=== PATIENT | female | born 1965 | race Caucasian/White ===

== ENCOUNTER 2017-11-17 13:07 | Emergency (ER) | payer MEDICAID ==
[2017-11-17 15:33] LABS: HCG,QUALITATIVE URINE NEGATIVE (NEGATIVE); SQUAMOUS EPITHIAL < 1 /hpf (0-5); URINE BACTERIA RARE (<OCC); URINE BILIRUBIN NEGATIVE (NEGATIVE); URINE BLOOD 3+ (NEGATIVE); URINE COLOR Yellow (YELLOW); URINE GLUCOSE (UA) NORMAL (Normal); URINE PROTEIN NEGATIVE (NEGATIVE); URINE UROBILINOGEN NORMAL mg/dL (0.2-1.0)
[2017-11-17 15:35] LABS: URINE CLARITY SLHAZY (Clear); URINE LEUKOCYTE ESTERASE 1+ Leu/uL (Negative)
--- NOTE | 2017-11-17 16:35 | C.PDOC ---
History Of Present Illness Pt c/o hematuria. Pt states she was sent here by Dr. Jason Salmeron. Time Seen by Provider: 11/17/17 14:48 Chief Complaint (Nursing): Female Genitourinary History Per: Patient Onset/Duration Of Symptoms: Days (about 3 months), Waxing/Waning Current Symptoms Are (Timing): Still Present Severity: Moderate Associated Symptoms: Urinary Symptoms Additional History Per: Prior Records Past Medical History Reviewed: Historical Data, Nursing Documentation, Vital Signs Vital Signs: Last Vital Signs Temp 97.4 F L 11/17/17 15:47 Pulse 60 11/17/17 15:47 Resp 16 11/17/17 15:47 BP 134/89 11/17/17 15:47 Pulse Ox 98 11/17/17 15:47 - Medical History PMH: Back Problems, Diverticulitis, HTN Other PMH: Solitary right kidney Surgical History: No Surg Hx Family History: States: Unknown Family Hx - Social History Hx Alcohol Use: Yes Hx Substance Use: Yes Review Of Systems Except As Marked, All Systems Reviewed And Found Negative. Constitutional: Negative for: Fever, Chills, Weakness Cardiovascular: Negative for: Chest Pain Respiratory: Negative for: Shortness of Breath Gastrointestinal: Negative for: Vomiting, Abdominal Pain, Diarrhea Genitourinary: Positive for: Hematuria. Negative for: Vaginal Bleeding Musculoskeletal: Negative for: Neck Pain Skin: Negative for: Rash Neurological: Negative for: Weakness, Numbness Physical Exam - Physical Exam Appears: Non-toxic, No Acute Distress Skin: Normal Color, Warm, Dry Head: Atraumatic, Normacephalic Eye(s): bilateral: PERRL, EOMI Neck: Normal ROM, Supple Cardiovascular: Rhythm Regular Respiratory: Normal Breath Sounds, No Accessory Muscle Use Gastrointestinal/Abdominal: Soft, No Tenderness Back: No CVA Tenderness Extremity: Normal ROM Neurological/Psych: Oriented x3, Normal Motor, Normal Sensation ED Course And Treatment - Laboratory Results Interpretation Of Abnormal: Probable UTI, urine C&S sent. Urine POC: Negative O2 Sat by Pulse Oximetry: 98 Pulse Ox Interpretation: Normal Progress Note: [place] [facility] [place] and had unremarkable labs as well as CT abd/pelv that showed not renal stones or hydronephrosis. Disposition Discussed With : Billy Salmeron Comment: He agreed with antibotic Rx and will f/up in his office. Doctor Will See Patient In The: Office Counseled Patient/Family Regarding: Studies Performed, Diagnosis, Need For Followup, Rx Given - Disposition Referrals: Billy Salmeron MD [Staff Provider] - Disposition: HOME/ ROUTINE Disposition Time: 16:35 Condition: STABLE Additional Instructions: Drink plenty of fluids. Follow up with the Urologist for further evaluation and treatment. Return to the ER if you develop fever, abdominal pain, worsening of symptoms or if you have any other concerns. Prescriptions: Nitrofurantoin Macrocrystals [Macrobid] 1 cap PO BID #14 cap Instructions: Urinary Tract Infection, Adult (DC) - Clinical Impression Clinical Impression: UTI (urinary tract infection)
[2017-11-17 16:53] VITALS: BP 137/81; PULSE 64; RESP 18; TEMP 98.4; O2SAT 97
== END 2017-11-17 16:55 | disposition home or self-care (01) ==
LOC: C.ER 13:07
DX: N39.0 Urinary tract infection, site not specified (principal)

== ENCOUNTER 2017-12-04 11:31 | Day surgery (SDC) | payer MEDICAID ==
[2017-12-04 12:12] LABS: BASO # 0.1 K/uL (0.0-0.2); EOS # 0.3 K/uL (0.0-0.7); EOS % 2.4 % (0.0-4.0); HEMOGLOBIN 18.1 g/dL (11.0-16.0); LYMPH # 2.9 K/uL (1.0-4.3); LYMPH % 25.9 % (20.0-40.0); MEAN CELL VOLUME 93.1 fL (81.0-99.0); MEAN CORPUSCULAR HEMOGLOBIN 31.9 pg (27.0-31.0); MEAN CORPUSCULAR HGB CONC 34.3 g/dL (33.0-37.0); MEAN PLATELET VOLUME 9.1 fL (7.2-11.7); MONO # 0.9 K/uL (0.0-0.8); MONO % 7.7 % (0.0-10.0); NEUT # 7.1 K/uL (1.8-7.0); NRBC % 0.1 % (0.0-2.0); RBC 5.66 Mil/uL (3.80-5.20); RED CELL DISTRIBUTION WIDTH 13.8 % (11.5-14.5); WHITE BLOOD COUNT 11.3 K/uL (4.8-10.8)
[2017-12-04 12:23] LABS: ALB/GLOB RATIO 1.2 (1.0-2.1); ALBUMIN 4.5 g/dL (3.5-5.0); ALT/SGPT 41 U/L (9-52); AST/SGOT 28 U/L (14-36); BLOOD UREA NITROGEN 16 mg/dL (7-17); CALCIUM 9.8 mg/dl (8.6-10.4); GFR NON-AFRICAN AMERICAN 52
[2017-12-04] MEDS ORDERED: Propofol 10 mg/ml Inj (20 ML) ONE (14:41)
[2017-12-04] MEDS ORDERED: Midazolam 2 MG/2 ML VIAL ONE (14:41)
[2017-12-04] MEDS ORDERED: cefTRIAXone 1 gm 1 GM/100 ML BAG IVPB ONE (14:42)
[2017-12-04] MEDS ORDERED: Iohexol 240 (50 ml) ONE (14:43)
[2017-12-04] MEDS ORDERED: Lactated Ringer's 1,000 ML IV ONE (15:23)
[2017-12-04] MEDS ORDERED: HYDROmorphone 0.5 mg/0.5 ml ISec ONE (15:29)
[2017-12-04] MEDS: HYDROmorphone 0.5 mg/0.5 ml ISec IVP PRN ×2 (15:41→16:07)
[2017-12-04] MEDS ORDERED: Oxycodone/Acetaminophen 5/325 mg Tab PO PRN (15:42)
--- NOTE | 2017-12-04 15:49 | RAD ---
PROCEDURE: HISTORY: As Above COMPARISON: None TECHNIQUE: Total fluoroscopic time utilized during the procedure: 4.8 seconds. Total dose 2.07 mGy cm squared FINDINGS: Submitted images from the current procedure: 2 Please refer to the physician's notes performing the procedure. IMPRESSION: Less than 1 hour fluoroscopic time utilized during performance of the procedure
--- NOTE | 2017-12-04 16:10 | RAD ---
Date of service: 12/04/2017 HISTORY: HEMATURIA COMPARISON: Two studies are presented 1 at 1452 hours another 1510 hours. The 1510 hour study has a hyperdensity projecting over the right kidney in also over the lowest right rib. This is not appreciated on the 14 52 are study. Clinical correlation is essential. Moderate stool retention. This limits optimal evaluation for any renal parenchymal calculi. Ir left hemipelvic phleboliths. The sacral junction osseous hypertrophic changes with transitional elements also suggested. Diffuse multi segmental lumbar spondylotic ridging also noted. FINDINGS: BOWEL: Normal. No obstruction. No free air. BONES: Normal. OTHER FINDINGS: None. IMPRESSION: Indeterminate findings regarding the right upper quadrant hyperdensity not a constant finding. Correlation with any outside the CT imaging is advised. Moderate stool retention.
[2017-12-04 17:24] VITALS: O2SAT 98
--- NOTE | 2017-12-04 17:35 | CT ---
Date of service: 12/04/2017 PROCEDURE: CT Abdomen and Pelvis with Oral contrast. HISTORY: Hematuria. COMPARISON: None. TECHNIQUE: Contiguous helical/transaxial sections of the abdomen pelvis performed without oral or intravenous contrast material. Additional 2D sagittal and coronal reformats generated. Radiation dose: Total exam DLP = mGy-cm. This CT exam was performed using one or more of the following dose reduction techniques: Automated exposure control, adjustment of the mA and/or kV according to patient size, and/or use of iterative reconstruction technique. Total exam DLP = 1031.41 mGy-cm. FINDINGS: LOWER THORAX: Lung bases are clear. No infiltrate effusion or basilar pneumothorax. Heart appears mildly enlarged. No significant pericardial effusion. Tiny hiatal hernia. LIVER: Liver exhibits normal size and attenuation pattern without mass collection or calcification. GALLBLADDER AND BILE DUCTS: Gallbladder physiologically distended. No evidence intraluminal gallbladder calculi. PANCREAS: Unremarkable. No mass. No ductal dilatation. SPLEEN: Unremarkable. No splenomegaly. ADRENALS: No adrenal lesions. KIDNEYS AND URETERS: Left kidney is not present and there are no metallic clips or opaque suture material seen in the expected left renal fossa. Findings could be due to congenital absence however clinic correlation recommended. The right kidney appears compensatory enlarged measuring approximately 13 cm. 2 tiny nonobstructing calculi seen upper pole right kidney. No evidence of hydronephrosis. BLADDER: In situ unclamped Contreras catheter ; urinary bladder is collapsed about the in situ unclamped Contreras catheter which presumably accounts for thick-walled appearance. Small amount of air is present within the bladder itself is well likely due to recent instrumentation. Clinical correlation recommended to exclude the possibility of infection with gas-forming organism. REPRODUCTIVE: Small approximately 14 mm left cyst or prominent follicle. APPENDIX: Normal-appearing appendix. BOWEL: Evaluation of the bowel is limited due to the lack of oral contrast material. Stomach is incompletely distended which in part accounts for thick-walled appearance Visualized loops of small bowel exhibit normal contour and caliber. No evidence of acute mechanical small bowel obstruction. Stool and air seen throughout the large bowel. No definitive evidence of abnormal mural wall thickening. PERITONEUM: Unremarkable. No fluid collection. No free air. Small fat containing umbilical hernia. LYMPH NODES: Unremarkable. No enlarged lymph nodes. VASCULATURE: Unremarkable. No aortic aneurysm. Minor partially calcified atherosclerotic plaque seen along the abdominal aorta and iliac arteries. BONES: Mild multilevel degenerative spondylosis of the lumbar and lower thoracic spine. No acute compression fractures no retropulsed fragments. Questionable mild side bending and/or spasm of the upper torso to the right versus is a mild levoscoliosis. OTHER FINDINGS: None. IMPRESSION: Absent left kidney. Right kidney appears contents stool early mildly enlarged. A 2 tiny and nonobstructing calculi upper pole right kidney. No evidence of right-sided hydronephrosis. In situ unclamped Contreras catheter with collapse of the urinary bladder about the Contreras catheter. Small amount of air is also present likely due to recent instrumentation. Correlation with urinalysis to exclude cystitis. Findings suggest prominent left adnexal follicle or small cyst pelvic ultrasound followup could be performed if indicated.
[2017-12-04 17:54] VITALS: BP 127/83; PULSE 67; RESP 18; TEMP 97.6
--- NOTE | 2017-12-05 06:31 | OP ---
Copied To: Irvin Salmeron MD Attending MD: Irvni Salmeron MD PROCEDURE DATE: 12/04/2017 PREOPERATIVE DIAGNOSES: Gross hematuria, voiding dysfunction, irritative and obstructive complaints. The patient also with a solitary kidney of the right side. POSTOPERATIVE DIAGNOSES: Gross hematuria, voiding dysfunction, irritative and obstructive complaints. The patient also with a solitary kidney of the right side. Bladder mass. I cannot identify the left ureteral orifice ( I do not know if she has one), but I cannot see. See the body of the report. The patient has a fairly significant bladder mass on the left side of her bladder neck right where the ureteral orifice would be. Multiple pictures were taken and saved and the biopsy was taken. PROCEDURE: Exam under anesthesia, cystoscopy, right retrograde pyelogram, bladder biopsy and fulguration, and attempted left retrograde, but we could not find the left ureteral orifice ( The patient has been found to have only 1 kidney). BLOOD LOSS: Less than 10 mL. DRAIN: Contreras catheter. SPECIMEN: Bladder biopsy. COMPLICATIONS: There were no complications. INDICATIONS: See history and physical. This is a very pleasant lady who presents with almost 10 years old with gross hematuria. She is here for the above-listed procedure. We discussed risks, benefits, and treatment alternatives with the patient. UROLOGY FINDINGS: 1. There is no fixed masses. The bladder is mobile and completely patent. 2. There is no rectal mass. 3. The right retrograde pyelogram was within normal limits. 4. The patient's left side of bladder near where the trigone and ureteral orifice should be, there is mass, somewhere about 3 to 5 cm in size. I took multiple pictures. It seems to be this was the bleeding. There is some warmth, redness and erythema that seems to be this was the bleeding. There are no other bladder lesions that we identified. We will subsequently take a biopsy and fulguration of that area. We also did a retrograde pyelogram. Further plans will follow. Determination to see whatever mass is there is still there. Concerns for an underlying malignancy. See the plans in the addendum, but I am planning to get a CT scan of the abdomen and pelvis, no contrast. SHE IS ALLERGIC. Just to see what the left side looks like and so we stop manipulating, but otherwise, we should be able to resect it with a TURBT. DESCRIPTION OF PROCEDURE: After obtaining informed consent, the patient was placed on the table in routine manner, routine time out was called. We confirmed the patient and positioning. We introduced the cystoscope via the urethra. Bladder was inspected carefully. The right ureteral orifice was identified, clear efflux on the right side and right retrograde pyelogram was performed, all within normal limits. In the left side, we noted the presence of the mass. We looked around and inspected. No other masses noted. It does not appear that the patient has hypertrophy of the kidney. I do not know the exact details for if she was born with one kidney, solitary kidney or whether it is removed later, but it does not overall appear to be overtly hypertrophied. We identified the mass which we then took biopsy sample gently carefully. too much bleeding and then we fulgurated, but it looks like that is the source of the bleed directly. It is fairly erythematous and juicy. I cannot identify left ureteral orifice (see the addendum below and needs to be resected). Specimen was taken and biopsy fulgurated. The patient tolerated the procedure well without complications. Cystoscope removed. Exam under anesthesia revealed normal external genitalia. No pelvic or rectal masses are detected. ADDENDUM Plan will be for a CT scan just to see what the left side looks like and then we will see about resectability. Plan will be once we get the biopsy back to plan for TURBT. Irvin Salmeron MD
--- NOTE | 2017-12-08 08:04 | HP ---
Copied To: Irvin Salmeron MD Attending MD: Irvin Salmeron MD UROLOGY ADMISSION HISTORY AND PHYSICAL REASON FOR ADMISSION: Workup for hematuria. HISTORY OF PRESENT ILLNESS: A very pleasant lady who I met who has microhematuria. She also has a little irritative voiding complaints and nocturia, occasional voiding dysfunction but currently no major complaints. We discussed workup. We discussed office cycloscopy. We discussed hospital cystoscopy. After discussing all the options with the patient, she is here today for cystoscopic evaluation and then further plans to follow. Actually, once we bring in the patient, retrograde for workup of hematuria. PAST MEDICAL AND SURGICAL HISTORY: As listed on the chart. She has underlying hypertension and history of an CO. REVIEW OF SYSTEMS: As listed above. No weight loss, chest pain, and shortness of breath. SOCIAL HISTORY: Essentially otherwise unremarkable. MEDICATIONS: See chart. ALLERGIES: SHE IS ALLERGIC TO IODINE. PHYSICAL EXAMINATION: GENERAL: A well-nourished female, in no apparent distress. VITAL SIGNS: Within normal limits. See chart. LUNGS: Clear. ABDOMEN: Overall soft, nontender. No flank mass appreciated. LYMPHATIC: No cervical or axillary lymphadenopathy. PELVIC: NEUROLOGIC: Unremarkable. LABORATORY DATA: See chart. DIAGNOSIS: Hematuria, voiding dysfunction, and nocturia. ASSESSMENT AND PLAN: In summary, this is a very pleasant lady, 52-year-old, almost 53. We discussed the options. The plan is as follows. We are going to do a cystoscopy, exam under anesthesia, retrograde pyelogram, possible biopsies finding and further plans to follow. Risks, benefits and alternative were discussed with the patient. The risk of doing the procedure and risk of not doing the procedure, risk of observation, risk of inspecting further carefully. All discussed at length. We are going to plan to proceed. Irvin Salmeron MD
--- NOTE | 2017-12-13 22:07 | CARD ---
APPROVED REPORT Date of service: 12/04/2017 EKG Measurement Heart [id number] <Conclusion> Normal sinus rhythm Left axis deviation Possible Inferior infarct, age undetermined Anterior infarct, age undetermined Abnormal ECG
== END 2017-12-04 17:50 | disposition home or self-care (01) ==
LOC: C.SDS 11:31
PROVIDERS: ATTEND Urology
DX: C67.5 Malignant neoplasm of bladder neck (principal); R31.9 Hematuria, unspecified; N20.0 Calculus of kidney; I10 Essential (primary) hypertension; I25.2 Old myocardial infarction; N32.9 Bladder disorder, unspecified; R31.0 Gross hematuria
CPT/HCPCS: 36415; 52204; 74018; 74176; 80053; 84703; 85025; 88305; 88342; 93005; A4358; J0696; J1170; J1580; J7120; Q9966

== ENCOUNTER 2017-12-26 12:44 | Observation (INO) | payer MEDICAID ==
[2017-12-26] MEDS ORDERED: Midazolam 2 MG/2 ML VIAL ONE (16:02)
[2017-12-26] MEDS ORDERED: Propofol 10 mg/ml Inj (20 ML) ONE (16:04)
[2017-12-26] MEDS ORDERED: cefTRIAXone 1 gm 1 GM/100 ML BAG IVPB ONE (16:10)
[2017-12-26] MEDS ORDERED: Phenylephrine 10 mg/ml Inj ONE (16:23)
[2017-12-26] MEDS: HYDROmorphone 0.5 mg/0.5 ml ISec IVP PRN ×3 (17:09→18:17)
[2017-12-26] MEDS: Acetaminophen-Codeine 300/30 mg Tab PO PRN (20:12)
[2017-12-26 20:21] VITALS: RESP 20
--- NOTE | 2017-12-26 21:37 | CP.PCM.HP ---
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" - MUSCULOSKELETAL/RHEUMATOLOGICAL Hx Musculoskeletal Disorders: Yes Hx Arthritis: Yes ("IN MY BACK") Hx Back Pain: Yes Hx Osteoarthritis: Yes Hx Spinal Stenosis: Yes - GASTROINTESTINAL Hx Gastrointestinal Disorders: Yes Hx Diverticulitis: Yes - GENITOURINARY/GYNECOLOGICAL Hx Genitourinary Disorders: Yes Hx Hematuria: Yes - SURGICAL HISTORY Hx Surgeries: Yes Hx Section: Yes Other/Comment: cystoscopy - ANESTHESIA Hx Anesthesia: Yes Hx Anesthesia Reactions: No Hx Malignant Hyperthermia: No Meds Allergies/Adverse Reactions: Allergies Allergy/AdvReac Type Severity Reaction Status Date / Time Iodinated Contrast- Oral and Allergy Severe "HIVES" Verified 12/03/17 09:16 IV Dye aspirin Allergy Unknown "TO AVOID Verified 12/03/17 09:16 -I ONLY HAVE 1 KIDNEY" TEGADERM Allergy Mild RASH Uncoded 12/26/17 13:22 Results - Vital Signs Recent Vital Signs: Last Vital Signs Temp 97.7 F 12/26/17 20:25 Pulse 70 12/26/17 20:25 Resp 20 12/26/17 20:25 BP 109/75 12/26/17 20:25 Pulse Ox 95 12/26/17 20:25
[2017-12-26] MEDS ORDERED: cefTRIAXone IV 1 gm in Dextros 50 ML IVPB ONE ×2 (22:41→23:00)
--- NOTE | 2017-12-27 00:02 | CP.PCM.CON ---
<Angela Baugh - Last Filed: 12/27/17 00:13> History of Present Illness - History of Present Illness History of Present Illness: Consult Note for Hospitalist Service Reason for consult: Medical Management HPI: This is a 52 year old female with PMHx of HTN, HLD, Chronic Back Pain, YAMILET ? and invasive bladder adenocarcinoma s/p TURP with Dr. Billy Salmeron 12/26/17. Patient reported having hematuria for 5-6 months, which at first she attributed to her menses. However, recently she started noticing clots in her urine. She followed up with her PMD who recommended she follow up with Urology. Patient underwent biopsy which revealed her diagnosis. Medicine team is consulted for medical management of the patient's chronic issues. Currently patient reports she feels okay, slight in pain 2/2 recent TURP. Denied fever, chills, chest pain , shortness of breathe, abdominal pain, n/v/d/c, or urinary symptoms. PMHx: HTN, HLD, Chronic Back Pain, YAMILET? and invasive bladder adenocarcinoma PSHx: C Section > 40 years ago Meds: As per MAR reviewed and confirmed All: IV contrast, ASA - rashes/hives SHx: Admits to smoking 1 PPD since the age of [age] years old, denied any alcohol use, or illicit drug use FHx: Unremarkable PMD: Dr. 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" - MUSCULOSKELETAL/RHEUMATOLOGICAL Hx Musculoskeletal Disorders: Yes Hx Arthritis: Yes ("IN MY BACK") Hx Back Pain: Yes Hx Osteoarthritis: Yes Hx Spinal Stenosis: Yes - GASTROINTESTINAL Hx Gastrointestinal Disorders: Yes Hx Diverticulitis: Yes - GENITOURINARY/GYNECOLOGICAL Hx Genitourinary Disorders: Yes Hx Hematuria: Yes - SURGICAL HISTORY Hx Surgeries: Yes Hx Section: Yes Other/Comment: cystoscopy - ANESTHESIA Hx Anesthesia: Yes Hx Anesthesia Reactions: No Hx Malignant Hyperthermia: No Meds Allergies/Adverse Reactions: Allergies Allergy/AdvReac Type Severity Reaction Status Date / Time Iodinated Contrast- Oral and Allergy Severe "HIVES" Verified 12/03/17 09:16 IV Dye aspirin Allergy Unknown "TO AVOID Verified 12/03/17 09:16 -I ONLY HAVE 1 KIDNEY" TEGADERM Allergy Mild RASH Uncoded 12/26/17 13:22 - Medications Medications: Current Medications Acetaminophen (Tylenol 325mg Tab) 650 mg PO Q6 PRN PRN Reason: Fever >100.4 F Acetaminophen/Codeine Phosphate (Tylenol/Codeine 300 Mg/30 Mg) 1 ea PO Q6 PRN PRN Reason: Bladder Spasm Last Admin: 12/26/17 20:12 Dose: 1 ea Amlodipine Besylate (Norvasc) 5 mg PO DAILY [facility] Enalapril Maleate (Vasotec) 20 mg PO DAILY [facility] Gabapentin (Neurontin) 100 mg PO DAILY [facility] Hydrochlorothiazide (Hydrodiuril) 25 mg PO DAILY [facility] Ceftriaxone Sodium 1 gm/ (Sodium Chloride) 100 mls @ 200 mls/hr IVPB DAILY [facility] PRN Reason: Protocol Sodium Chloride (Sodium Chloride 0.9%) 1,000 mls @ 100 mls/hr IV .Q10H [facility] Nicotine (Nicoderm Cq) 1 patch TD DAILY [facility] Ondansetron HCl (Zofran Inj) 4 mg IVP Q6 PRN PRN Reason: Nausea/Vomiting Oxycodone/Acetaminophen (Percocet 5/325 Mg Tab) 1 tab PO Q6H PRN PRN Reason: Pain, Mild (1-3) Stop: 12/29/17 20:41 Pantoprazole Sodium (Protonix Ec Tab) 40 mg PO DAILY [facility] Pneumococcal Polyvalent Vaccine (Pneumovax 23 Vaccine) 0.5 ml IM .ONCE ONE Stop: 12/27/17 10:01 Rosuvastatin Calcium (Crestor) 5 mg PO HS [facility] Last Admin: 12/26/17 21:05 Dose: 5 mg Saccharomyces Boulardii (Florastor) 250 mg PO Q12 [facility] Physical Exam - Constitutional Appears: No Acute Distress - Head Exam Head Exam: NORMAL INSPECTION, NORMOCEPHALIC - Eye Exam Eye Exam: EOMI, Normal appearance, PERRL Pupil Exam: NORMAL ACCOMODATION - ENT Exam ENT Exam: Mucous Membranes Moist, Normal Exam - Respiratory Exam Respiratory Exam: Clear to Auscultation Bilateral, NORMAL BREATHING PATTERN - Cardiovascular Exam Cardiovascular Exam: REGULAR RHYTHM, RRR, +S1, +S2 - GI/Abdominal Exam GI & Abdominal Exam: Distended, Normal Bowel Sounds, Soft, Tenderness. absent: Firm, Hyperactive Bowel Sounds, Hypoactive Bowel Sounds, Organomegaly - Rectal Exam Rectal Exam: Deferred - Extremities Exam Extremities exam: Positive for: normal inspection, pedal pulses present. Negative for: pedal edema, tenderness - Back Exam Back exam: NORMAL INSPECTION - Neurological Exam Neurological exam: Alert, CN II-XII Intact, Oriented x3 - Psychiatric Exam Psychiatric exam: Normal Affect, Normal Mood - Skin Skin Exam: Dry, Intact, Normal Color, Warm Results - Vital Signs Recent Vital Signs: Last Vital Signs Temp 98.7 F 12/26/17 23:09 Pulse 69 12/26/17 23:09 Resp 20 12/26/17 23:09 BP 130/74 12/26/17 23:09 Pulse Ox 95 12/26/17 23:09 Assessment & Plan - Assessment and Plan (Free Text) Plan: Invasive Bladder Adenocarcinoma s/p TURP w/ Dr. Billy Salmeron 12/26/17 - Will need to speak to Dr. Romel Salmeron regarding if involvement with Heme/Onc is warranted - Contreras in place will DC upon urology reccs Medications: - Started NS @ 100cc/hr, Rocephin 1 gram daily, Florastor - Pain management: Tylenol/codeine, Percocet PRN Polycythemia Likely 2/2 suspected YAMILET - Iron panel ordered - F/U ECHO Hx YAMILET? - Patient will need outpatient sleep study performed Hx HTN - Resumed home medications: Norvasc, Vasotec, HCTZ Hx HLD - Resume statin Hx Chronic Back Pain Tobacco Use Disorder - Smoking cessation encouraged - Nicotine patch Prophylactic Measures: - GI PPX: Protonix - DVT PPX: SCDs, VTE c/i DW Angela High DO, PGY2 <Joaquin Capellan P - Last Filed: 12/27/17 06:46> Meds - Medications Medications: Current Medications Acetaminophen (Tylenol 325mg Tab) 650 mg PO Q6 PRN PRN Reason: Fever >100.4 F Acetaminophen/Codeine Phosphate (Tylenol/Codeine 300 Mg/30 Mg) 1 ea PO Q6 PRN PRN Reason: Bladder Spasm Last Admin: 12/27/17 02:31 Dose: 1 ea Amlodipine Besylate (Norvasc) 5 mg PO DAILY [facility] Enalapril Maleate (Vasotec) 20 mg PO DAILY [facility] Gabapentin (Neurontin) 100 mg PO DAILY [facility] Hydrochlorothiazide (Hydrodiuril) 25 mg PO DAILY [facility] Ceftriaxone Sodium 1 gm/ (Sodium Chloride) 100 mls @ 200 mls/hr IVPB DAILY [facility] PRN Reason: Protocol Sodium Chloride (Sodium Chloride 0.9%) 1,000 mls @ 100 mls/hr IV .Q10H [facility] Last Admin: 12/27/17 00:43 Dose: 100 mls/hr Nicotine (Nicoderm Cq) 1 patch TD DAILY [facility] Ondansetron HCl (Zofran Inj) 4 mg IVP Q6 PRN PRN Reason: Nausea/Vomiting Oxycodone/Acetaminophen (Percocet 5/325 Mg Tab) 1 tab PO Q6H PRN PRN Reason: Pain, Mild (1-3) Stop: 12/29/17 20:41 Last Admin: 12/27/17 03:36 Dose: 1 tab Pantoprazole Sodium (Protonix Ec Tab) 40 mg PO DAILY [facility] Pneumococcal Polyvalent Vaccine (Pneumovax 23 Vaccine) 0.5 ml IM .ONCE ONE Stop: 12/27/17 10:01 Rosuvastatin Calcium (Crestor) 5 mg PO HS [facility] Last Admin: 12/26/17 21:05 Dose: 5 mg Saccharomyces Boulardii (Florastor) 250 mg PO Q12 [facility] Results - Vital Signs Recent Vital Signs: Last Vital Signs Temp 98.7 F 12/26/17 23:09 Pulse 69 12/26/17 23:09 Resp 20 12/26/17 23:09 BP 130/74 12/26/17 23:09 Pulse Ox 95 12/27/17 00:20 Attending/Attestation - Attestation I have personally seen and examined this patient.: Yes I have fully participated in the care of the patient.: Yes I have reviewed all pertinent clinical information: Yes Notes (Text): Assessment Invasive adenoca in the bladder, s/p transuretheral removal of the tumor, with hematuria Hi hemoglobin likely secondary to copd, sleep apnea, obesity hyponea Tobacco abuse H/o htn Plan Abx due to hematuria w/u for high hemoglobin including iron studies, erythropoitien level, avoid dehydration Home meds to continue Out patient w/u for sleep apnea Need to d/w urology if patient need's any other modailities of treatment.
[2017-12-27] MEDS: Sodium Chloride 0.9% 1,000 ML IV SCH ×3 (00:43→20:15)
[2017-12-27] MEDS: Acetaminophen-Codeine 300/30 mg Tab PO PRN ×2 (02:31→16:12)
[2017-12-27] MEDS: Oxycodone/Acetaminophen 5/325 mg Tab PO PRN ×3 (03:36→20:13)
[2017-12-27 07:59] LABS: IRON 42 ug/dL (37-170)
[2017-12-27 08:04] LABS: ALB/GLOB RATIO 1.2 (1.0-2.1); ALBUMIN 3.7 g/dL (3.5-5.0); ALT/SGPT 31 U/L (9-52); AST/SGOT 18 U/L (14-36); BLOOD UREA NITROGEN 16 mg/dL (7-17); CALCIUM 8.9 mg/dl (8.6-10.4); GFR NON-AFRICAN AMERICAN 58
[2017-12-27 08:09] LABS: % IRON SATURATION 15 (20-55); TOTAL IRON BINDING CAPACITY 275 ug/dL (250-450)
[2017-12-27 08:20] LABS: BASO # 0.1 K/uL (0.0-0.2); BASO % 0.5 % (0.0-2.0); EOS # 0.3 K/uL (0.0-0.7); EOS % 2.4 % (0.0-4.0); LYMPH # 3.6 K/uL (1.0-4.3); LYMPH % 30.8 % (20.0-40.0); MEAN CORPUSCULAR HEMOGLOBIN 31.5 pg (27.0-31.0); MEAN CORPUSCULAR HGB CONC 33.9 g/dL (33.0-37.0); MEAN PLATELET VOLUME 8.9 fL (7.2-11.7); MONO # 1.1 K/uL (0.0-0.8); MONO % 8.9 % (0.0-10.0); NEUT # 6.8 K/uL (1.8-7.0); NEUT % 57.4 % (50.0-75.0); NRBC % 0.1 % (0.0-2.0); RBC 4.94 Mil/uL (3.80-5.20); RED CELL DISTRIBUTION WIDTH 13.9 % (11.5-14.5); WHITE BLOOD COUNT 11.8 K/uL (4.8-10.8)
[2017-12-27 08:24] LABS: HEMOGLOBIN 15.6 g/dL (11.0-16.0)
[2017-12-27] MEDS: Saccharomyces Boulardi 250 mg Cap PO SCH ×3 (08:26→21:48)
[2017-12-27] MEDS: Pantoprazole 40 mg EC Tab PO SCH (09:47)
[2017-12-27] MEDS ORDERED: Pneumococcal 23-Valent Vaccine IM ONE (10:00)
--- NOTE | 2017-12-27 11:02 | CP.PCM.PN ---
<Marvin Izquierdo - Last Filed: 12/27/17 19:13> Subjective - Date & Time of Evaluation Date of Evaluation: 12/27/17 Time of Evaluation: 11:00 - Subjective Subjective: PGY-1 Medicine Progress Note for Dr. Sumner Patient was seen and examined at bedside this AM, complaining of cramping lower abdominal and suprapubic pain after coming back from ECHO this AM. No acute overnight events reported. Patient has cr catheter in place, continuing to drain sanguinous urine. No fevers/chills, nausea/vomiting/diarrhea/constipation , chest pain, palpitations, sob, or cough. Objective - Vital Signs/Intake and Output Vital Signs (last 24 hours): Temp Pulse Resp BP Pulse Ox 98.4 F 75 20 126/76 96 12/27/17 08:00 12/27/17 08:00 12/27/17 08:00 12/27/17 09:47 12/27/17 08:00 Intake and Output: 12/27/17 12/27/17 06:59 18:59 Output Total 300 Balance -300 - Medications Medications: Current Medications Acetaminophen (Tylenol 325mg Tab) 650 mg PO Q6 PRN PRN Reason: Fever >100.4 F Acetaminophen/Codeine Phosphate (Tylenol/Codeine 300 Mg/30 Mg) 1 ea PO Q6 PRN PRN Reason: Bladder Spasm Last Admin: 12/27/17 02:31 Dose: 1 ea Amlodipine Besylate (Norvasc) 5 mg PO DAILY [facility] Last Admin: 12/27/17 09:49 Dose: 5 mg Enalapril Maleate (Vasotec) 20 mg PO DAILY [facility] Last Admin: 12/27/17 09:47 Dose: 20 mg Gabapentin (Neurontin) 100 mg PO DAILY [facility] Last Admin: 12/27/17 09:47 Dose: 100 mg Hydrochlorothiazide (Hydrodiuril) 25 mg PO DAILY [facility] Ceftriaxone Sodium 1 gm/ (Sodium Chloride) 100 mls @ 200 mls/hr IVPB DAILY [facility] PRN Reason: Protocol Last Admin: 12/27/17 10:07 Dose: 200 mls/hr Sodium Chloride (Sodium Chloride 0.9%) 1,000 mls @ 100 mls/hr IV .Q10H [facility] Last Admin: 12/27/17 00:43 Dose: 100 mls/hr Nicotine (Nicoderm Cq) 1 patch TD DAILY [facility] Last Admin: 12/27/17 10:07 Dose: 1 patch Ondansetron HCl (Zofran Inj) 4 mg IVP Q6 PRN PRN Reason: Nausea/Vomiting Oxycodone/Acetaminophen (Percocet 5/325 Mg Tab) 1 tab PO Q6H PRN PRN Reason: Pain, Mild (1-3) Stop: 12/29/17 20:41 Last Admin: 12/27/17 09:47 Dose: 1 tab Pantoprazole Sodium (Protonix Ec Tab) 40 mg PO DAILY [facility] Last Admin: 12/27/17 09:47 Dose: 40 mg Rosuvastatin Calcium (Crestor) 5 mg PO HS [facility] Last Admin: 12/26/17 21:05 Dose: 5 mg Saccharomyces Boulardii (Florastor) 250 mg PO Q12 [facility] Last Admin: 12/27/17 09:49 Dose: 250 mg - Labs Labs: 12/27/17 07:38 12/27/17 07:38 - Constitutional Appears: Non-toxic, In Acute Distress, Chronically Ill - Head Exam Head Exam: ATRAUMATIC, NORMAL INSPECTION, NORMOCEPHALIC - Eye Exam Eye Exam: EOMI, Normal appearance Pupil Exam: NORMAL ACCOMODATION - ENT Exam ENT Exam: Mucous Membranes Moist, Normal Exam - Neck Exam Neck Exam: Normal Inspection - Respiratory Exam Respiratory Exam: Clear to Ausculation Bilateral, NORMAL BREATHING PATTERN. absent: Rales, Rhonchi, Wheezes - Cardiovascular Exam Cardiovascular Exam: REGULAR RHYTHM, +S1, +S2 - GI/Abdominal Exam GI & Abdominal Exam: Distended, Soft, Tenderness, Normal Bowel Sounds. absent: Guarding, Rigid, Mass - Rectal Exam Rectal Exam: Deferred - Exam Additional comments: Cr catheter in place draining 300cc sanguinous urine. - Extremities Exam Extremities Exam: Normal Capillary Refill, Normal Inspection. absent: Pedal Edema, Tenderness - Back Exam Back Exam: NORMAL INSPECTION - Neurological Exam Neurological Exam: Alert, Awake, Oriented x3 - Psychiatric Exam Psychiatric exam: Normal Affect, Normal Mood - Skin Skin Exam: Dry, Intact, Normal Color, Warm Assessment and Plan - Assessment and Plan (Free Text) Assessment: 52 yo F with PMHx of HTN, HLD, Chronic Back Pain, YAMILET (?), and invasive bladder adenocarcinoma s/p TURP with Dr. Billy Salmeron (12/26/17). Medicine team is consulted for medical management of the patient's chronic issues. Plan: 1. Invasive Bladder Adenocarcinoma--s/p TURP w/ Dr. Billy Salmeron 12/26/17 - Patient in acute pain this am to lower abdomen and suprapubic area -given Morphine 2gm IV once - Per Nursing Note (12/26, 20:50): Dr Salmeron will come Friday to d/joseph cr and send patient home - f/u with Dr. Salmeron re: possible need for Heme/Onc involvement - Medications: -NS @ 100cc/hr, -Rocephin 1 gram daily -Florastor 250 mg PO q12 -Pain management: Tylenol/codeine, Percocet 1 tab PO q6 PRN 2. Polycythemia--Likely 2/2 suspected YAMILET - Iron 42 - TIBC 275 - Ferritin 107 - % sat: 15 - f/u ECHO 3. Hx YAMILET(?) - Patient will need outpatient sleep study performed 4. Hx of HTN - Resumed home medications -Norvasc 5 mg PO daily -Vasotec 20 mg PO daily -HCTZ 25 mg PO daily 5. Hx of HLD - Crestor 5 mg PO HS 6. Hx Chronic Back Pain - Pain management - Tylenol/codeine -Percocet 1 tab PO q6 PRN 7. Tobacco Use Disorder - Smoking cessation encouraged - Nicotine patch 8. PPx, Diet, Disposition: - GI PPX: Protonix 40 mg PO daily - DVT PPX: SCDs, VTE contraindicated - Heart Healthy Diet -Per Nursing Note (12/26, 20:50): Dr Salmeron will come Friday to conrado/joseph cr and send patient home Case discussed with Dr. Burak Izquierdo PGY-1 <Iglesia Sumner - Last Filed: 12/28/17 19:09> Objective - Vital Signs/Intake and Output Vital Signs (last 24 hours): Temp Pulse Resp BP Pulse Ox 98.4 F 69 20 128/71 95 12/28/17 16:00 12/28/17 16:00 12/28/17 16:00 12/28/17 16:00 12/28/17 16:00 Intake and Output: 12/28/17 12/29/17 18:59 06:59 Intake Total 2000 Output Total 1200 Balance 800 - Labs Labs: 12/28/17 09:35 12/28/17 09:35 Attending/Attestation - Attestation I have personally seen and examined this patient.: Yes I have fully participated in the care of the patient.: Yes I have reviewed all pertinent clinical information, including history, physical exam and plan: Yes Notes (Text): 12/28/17 19:09 This is a late entry Care of this patient was gone over in detail with the resident Iglesia Sumner D.O.
--- NOTE | 2017-12-27 12:44 | CARD ---
APPROVED REPORT Date of service: 12/27/2017 EXAM: Two-dimensional and M-mode echocardiogram with Doppler and color Doppler. Other Information Quality : TDSRhythm : INDICATION Infection: RISK FACTORS Hypertension Hyperlipidemia 2D DIMENSIONS IVSd1.2 (0.7-1.1cm)LVDd4.1 (3.9-5.9cm) PWd1.3 (0.7-1.1cm)LVDs2.4 (2.5-4.0cm) FS (%) 40.1 %LVEF (%)71.2 (>50%) M-Mode DIMENSIONS Left Atrium (MM)3.52 (2.5-4.0cm)IVSd1.31 (0.7-1.1cm) Aortic Root3.19 (2.2-3.7cm)LVDd4.63 (4.0-5.6cm) Aortic Cusp Exc.2.25 (1.5-2.0cm)PWd1.03 (0.7-1.1cm) FS (%) 41 %LVDs2.72 (2.0-3.8cm) LVEF (%)72 (>50%) Mitral Valve MV E Exryjbgq18.6cm/sMV A Lbtjyygs49.6cm/sE/A ratio0.8 TDI E/Lateral E'0.0E/Medial E'0.0 Tricuspid Valve TR Peak Bvolwkbk662zr/sTR Peak Gr.87lbWhYSPK03laVo <Conclusion> nomral size la,lv & ra rv. normal lv wall motion & systolic funciton with lvef of 65-70%. mild concentric lvh. lv diastolic dysfunction grade one. normal aortic,mitral,tv & pv. trace tr & pi with normal pulmonary systolic pressures of 20 mm of hg. normal size aortic root & ivc. no pericardial effusion seen.
[2017-12-28] MEDS: Sodium Chloride 0.9% 1,000 ML IV SCH ×2 (00:47→07:19)
[2017-12-28] MEDS: Oxycodone/Acetaminophen 5/325 mg Tab PO PRN ×2 (02:06→08:24)
[2017-12-28] MEDS: Saccharomyces Boulardi 250 mg Cap PO SCH (09:23)
[2017-12-28] MEDS: Pantoprazole 40 mg EC Tab PO SCH (09:24)
[2017-12-28 09:43] LABS: BASO % 0.5 % (0.0-2.0); EOS # 0.3 K/uL (0.0-0.7); EOS % 3.1 % (0.0-4.0); LYMPH % 31.2 % (20.0-40.0); MEAN CELL VOLUME 92.6 fL (81.0-99.0); MEAN CORPUSCULAR HEMOGLOBIN 31.4 pg (27.0-31.0); MEAN CORPUSCULAR HGB CONC 33.9 g/dL (33.0-37.0); MEAN PLATELET VOLUME 8.9 fL (7.2-11.7); MONO % 10.1 % (0.0-10.0); NEUT # 5.4 K/uL (1.8-7.0); NEUT % 55.1 % (50.0-75.0); RBC 4.78 Mil/uL (3.80-5.20); RED CELL DISTRIBUTION WIDTH 13.9 % (11.5-14.5); WHITE BLOOD COUNT 9.7 K/uL (4.8-10.8)
[2017-12-28 10:35] LABS: ALB/GLOB RATIO 1.2 (1.0-2.1); ALBUMIN 3.7 g/dL (3.5-5.0); ALT/SGPT 27 U/L (9-52); AST/SGOT 23 U/L (14-36); BLOOD UREA NITROGEN 11 mg/dL (7-17); GFR NON-AFRICAN AMERICAN > 60
--- NOTE | 2017-12-28 12:37 | CP.PCM.PN ---
<Joanna Luke - Last Filed: 12/28/17 16:43> Subjective - Date & Time of Evaluation Date of Evaluation: 12/28/17 Time of Evaluation: 08:00 - Subjective Subjective: PGY3 Medicine Progress Note for Dr. Sumner Patient was seen and examined at bedside this AM. Her cr was removed this morning and she has been able to urinate 2x since still with hematuria. No acute overnight events reported. Admits to mild abdominal pain unchanged from yesterday. No fevers/chills, nausea/vomiting/diarrhea/constipation, chest pain, palpitations, sob, or cough. Objective - Vital Signs/Intake and Output Vital Signs (last 24 hours): Temp Pulse Resp BP Pulse Ox 98.2 F 37 L 20 134/80 96 12/28/17 08:00 12/28/17 08:00 12/28/17 08:00 12/28/17 09:21 12/28/17 08:00 Intake and Output: 12/28/17 12/28/17 06:59 18:59 Intake Total 1200 1200 Output Total 1200 1200 Balance 0 0 - Medications Medications: Current Medications Acetaminophen (Tylenol 325mg Tab) 650 mg PO Q6 PRN PRN Reason: Fever >100.4 F Acetaminophen/Codeine Phosphate (Tylenol/Codeine 300 Mg/30 Mg) 1 ea PO Q6 PRN PRN Reason: Bladder Spasm Last Admin: 12/27/17 16:12 Dose: 1 ea Amlodipine Besylate (Norvasc) 5 mg PO DAILY [facility] Last Admin: 12/28/17 09:21 Dose: 5 mg Enalapril Maleate (Vasotec) 20 mg PO DAILY [facility] Last Admin: 12/28/17 09:21 Dose: 20 mg Gabapentin (Neurontin) 100 mg PO DAILY [facility] Last Admin: 12/28/17 09:21 Dose: 100 mg Hydrochlorothiazide (Hydrodiuril) 25 mg PO DAILY [facility] Last Admin: 12/28/17 09:21 Dose: 25 mg Ceftriaxone Sodium 1 gm/ (Sodium Chloride) 100 mls @ 200 mls/hr IVPB DAILY [facility] PRN Reason: Protocol Last Admin: 12/28/17 10:00 Dose: 200 mls/hr Sodium Chloride (Sodium Chloride 0.9%) 1,000 mls @ 100 mls/hr IV .Q10H [facility] Last Admin: 12/28/17 07:19 Dose: Not Given Nicotine (Nicoderm Cq) 1 patch TD DAILY [facility] Last Admin: 12/28/17 09:22 Dose: 1 patch Ondansetron HCl (Zofran Inj) 4 mg IVP Q6 PRN PRN Reason: Nausea/Vomiting Oxycodone/Acetaminophen (Percocet 5/325 Mg Tab) 1 tab PO Q6H PRN PRN Reason: Pain, Mild (1-3) Stop: 12/29/17 20:41 Last Admin: 12/28/17 08:24 Dose: 1 tab Pantoprazole Sodium (Protonix Ec Tab) 40 mg PO DAILY [facility] Last Admin: 12/28/17 09:24 Dose: Not Given Rosuvastatin Calcium (Crestor) 5 mg PO HS [facility] Last Admin: 12/27/17 21:48 Dose: 5 mg Saccharomyces Boulardii (Florastor) 250 mg PO Q12 [facility] Last Admin: 12/28/17 09:23 Dose: Not Given - Labs Labs: 12/28/17 09:35 12/28/17 09:35 - Constitutional Appears: Non-toxic, No Acute Distress - Head Exam Head Exam: NORMAL INSPECTION - Eye Exam Eye Exam: EOMI Pupil Exam: NORMAL ACCOMODATION - ENT Exam ENT Exam: Mucous Membranes Moist - Cardiovascular Exam Cardiovascular Exam: REGULAR RHYTHM, +S1, +S2 - GI/Abdominal Exam GI & Abdominal Exam: Distended, Soft, Tenderness, Normal Bowel Sounds Additional comments: minimal and mild - Extremities Exam Extremities Exam: Normal Inspection - Back Exam Back Exam: NORMAL INSPECTION. absent: CVA tenderness (L), CVA tenderness (R), paraspinal tenderness - Neurological Exam Neurological Exam: Alert, Awake, Normal Gait, Oriented x3 Neuro motor strength exam: Left Upper Extremity: 5, Right Upper Extremity: 5, Left Lower Extremity: 5, Right Lower Extremity: 5 - Psychiatric Exam Psychiatric exam: Normal Affect, Normal Mood - Skin Skin Exam: Normal Color Assessment and Plan - Assessment and Plan (Free Text) Assessment: Assessment: 52 yo F with PMHx of HTN, HLD, Chronic Back Pain, YAMILET (?), and invasive bladder adenocarcinoma s/p TURP with Dr. Billy Salmeron (12/26/17). Medicine team is consulted for medical management of the patient's chronic issues. Plan: Invasive Bladder Adenocarcinoma--s/p TURP w/ Dr. Billy Salmeron 12/26/17 - Patient in acute pain this am to lower abdomen and suprapubic area - mild and no changes from pervious -given Morphine 2gm IV once - Cr removed this morning. She has been urinating well since removal - Per Nursing Note (12/26, 20:50): Dr Salmeron will come Friday to d/c cr and send patient home - f/u with Dr. Salmeron re: possible need for Heme/Onc involvement - Medications: -NS @ 100cc/hr, -Rocephin 1 gram daily -Florastor 250 mg PO q12 -Pain management: Tylenol/codeine, Percocet 1 tab PO q6 PRN -Patient was given script for heme/onc eval to be discussed with Dr. Salmeron and her primary care physician Polycythemia--Likely 2/2 suspected YAMILET - Iron 42 - TIBC 275 - Ferritin 107 - % sat: 15 - Echo: mild concentric LVH with grade one diastolic dysfunction. EF preserved Hx YAMILET(?) - Patient will need outpatient sleep study performed - Given script for pulm/sleep medicine consultation HTN - Resumed home medications -Norvasc 5 mg PO daily -Vasotec 20 mg PO daily -HCTZ 25 mg PO daily -Controlled HLD - Crestor 5 mg PO HS Chronic Back Pain - Pain management - Tylenol/codeine -Percocet 1 tab PO q6 PRN Tobacco Use Disorder - Smoking cessation encouraged - Nicotine patch Prophylactic Measures - GI PPX: Protonix 40 mg PO daily - DVT PPX: SCDs, VTE contraindicated - Heart Healthy Diet -Per Nursing Note (12/26, 20:50): Dr Salmeron will come today to and send patient home. Patient states she has all of her home medications and does not need refills. MEDICINE team will sign off the patient. Please reconsult as needed. <Iglesia Sumner - Last Filed: 12/28/17 19:16> Objective - Vital Signs/Intake and Output Vital Signs (last 24 hours): Temp Pulse Resp BP Pulse Ox 98.4 F 69 20 128/71 95 12/28/17 16:00 12/28/17 16:00 12/28/17 16:00 12/28/17 16:00 12/28/17 16:00 Intake and Output: 12/28/17 12/29/17 18:59 06:59 Intake Total 2000 Output Total 1200 Balance 800 - Labs Labs: 12/28/17 09:35 12/28/17 09:35 Attending/Attestation - Attestation I have personally seen and examined this patient.: Yes I have fully participated in the care of the patient.: Yes I have reviewed all pertinent clinical information, including history, physical exam and plan: Yes Notes (Text): 12/28/17 19:10 Exam, assessment and plan were gone over with the resident. Patient had large bowel movement after cr was removed. She only complains of soreness in the bilateral lower quadrants and suprapubic area Please note that patient stated that Tylenol #3 does not work for her pain. Therefore Percocet 5/325 mg PO Q8H PRN Severe Pain #20 was provided to her after checking [place] Rx Reporting system which indicated that the last time Percocet was provided to her was in October 2017. Medicine Team's discharge instructions were gone over with resident Dr. Stacy Sumner D.O.
[2017-12-28 16:01] VITALS: BP 128/71; PULSE 69; TEMP 98.4; O2SAT 95
--- NOTE | 2018-01-09 05:46 | HP ---
UROLOGY ADMISSION HISTORY AND PHYSICAL REASON FOR ADMISSION: Transurethral resection of the bladder tumor. HISTORY OF PRESENT ILLNESS: Ms. Nielsen is a very pleasant lady. See previous notes from the middle of 11/2017 where she presented with gross hematuria. She was found to have a bladder cancer and adenocarcinoma with an unknown primary, and she is now here for further resection. See the plans listed above. PAST MEDICAL AND SURGICAL HISTORY: As listed above. REVIEW OF SYSTEMS: As listed above. No weight loss or chest pain. gross hematuria. MEDICATIONS: See chart. ALLERGIES: SEE CHART. PHYSICAL EXAMINATION: GENERAL: A well-nourished female, in no apparent distress. VITAL SIGNS: Within normal limits. Listed within the chart. LUNGS: Clear. HEART: Normal S1 and S2. ABDOMEN: Soft, nontender. No flank mass appreciated. GENITOURINARY: As I mentioned previously but there is no pelvic or rectal masses. The bladder is mobile. It is completely free. There are no direct pelvic masses and no rectal masses. LABORATORY DATA: CT scan does not show any evidence of any lesions anywhere, nothing from the pancreas, nothing from the colon. There is no evidence of lymph nodes. DIAGNOSES: 1. Gross hematuria. 2. Bladder mass. 3. Adenocarcinoma of the bladder. PLAN: I had a long discussion with the patient. . She feels to express surprise that this was a cancer. I discussed various things with the patient with the delicate tone, not to be overly alarming at this point as we walking into the operating room. Plan for today is as follows. I am planning to resect the tumor to get more tissue to see if this will help pathologically. She still needs further diagnostic studies including a GI workup and further source of the cancer. We have labs pending. We have CA 19-9 pending. We have CEA level pending. This will also require some workup by her medical doctor. She comes to me very frequently including insurance related reasons. She actually lives elsewhere and her medical doctor is localized in [place]. So, I am going to make contact that primary as well. But for today keep things relatively focused. The plan is as follows: 1. The patient into the OR. 2. Antibiotic prophylaxis. 3. Transurethral resection of bladder tumor and then further plans to follow. I discussed this with the patient and further plans will follow. Irvin Salmeron MD [facility] # [id number]
--- NOTE | 2018-01-09 13:16 | OP ---
PROCEDURE DATE: UROLOGY OPERATIVE REPORT As I mentioned briefly that as on making through the procedure, this is a repeat of the dictation, but either way, we have no way . PREOPERATIVE DIAGNOSES: Gross hematuria, bladder lesion and adenocarcinoma of the bladder. POSTOPERATIVE DIAGNOSES: Gross hematuria, bladder lesion and adenocarcinoma of the bladder. PROCEDURE: Transurethral resection of the bladder tumor. COMPLICATIONS: There were no complications. SPECIMEN: Bladder tumor. DRAIN: Contreras catheter. BLOOD LOSS: Less than 10 mL. UROLOGY OPERATIVE FINDINGS: She has an isolated lesion on the left side of the bladder. I want to mention briefly that at the termination of the procedure, we were not deep enough and there was no surface visible tumor, but it is not a deep resection. Just a brief, this is a patient with a solitary kidney, the lesion is on the left side of the bladder. The patient does have a solitary kidney. Resection is as deep and as wide as possible. We know that the patient has an underlying adenocarcinoma of the bladder. We do not know if this is primary from the bladder or whether this is secondary to an adenocarcinoma elsewhere. On a CT scan, there was no obvious GI or [employer] REPRESENTATIVE source. That is, we have a negative CAT scan and there are no lymph nodes, no colonic lesion, no pancreatic lesions, and no obvious [employer] REPRESENTATIVE malignancies. 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 I previously described this in the office as well. Today, the patient prior to the procedure was surprised that there was any carcinoma. So therefore without overly alerting and alarming the patient, I delicately explained this and authorized today for resection of the tumor and to correct more tissue diagnosis as I explained before the procedure that she is going to need further diagnostic testing including gastroenterology's workup and further diagnostic studies. I have explained all this to the patient in detail, but without overly alarming her. Today, we are going to resect at least we can control the bleeding. I have to discuss all these options with the patient if she the above listed procedure. UROLOGY OPERATIVE FINDINGS: There is a one large tumor on the patient's left side. We were able to resect it. Anything visible on the surface is resected. Depth is not the issue in this particular setting and therefore we did not go excessively deep. We did resect. See the final pictures. There is nothing visible on the surface, but I do not think this will be an issue in hand. The issue in hand will be whether or not there is another source of this carcinoma or the primary adenocarcinoma of the bladder and we will discuss further with the patient our general recommendations for complete radical cystectomy, pelvic evaluation etc., and this will be done elsewhere, but I will be discussing this with the patient further but today, we just wanted to reassure the patient and remove as much tissue and see if we can control the bleeding. The patient's main complaint is persistent gross hematuria. PROCEDURE: After obtaining informed consent, the patient placed on the OR table. Routine monitor placed. Time outs were called. We confirmed the patient and positioning. Antibiotic prophylaxis were used. We introduced the resectoscope inside. We inspected the bladder carefully, again there is only one isolated lesion, it is about 3 to 5 cm in size. We began our resection. We set the settings at 180 and 80 and we slowly and carefully cauterized. We were very mindful toward the right ureteral orifice. We worked away slowly, carefully and gently and resected the tissue. We evacuated all the tissue. We evaluated for hemostasis. Bleeding was controlled. Further inspection, there is no visible lesion on the surface level. At this point, a Contreras catheter was inserted via urethra with slight blood-tinged urine. We now performed the pelvic exam. The bladder was completely mobile. There is no fixed pelvic or rectal masses. The patient tolerated the procedure well without complications. Irvin Salmeron MD
== END 2017-12-28 18:30 | disposition home or self-care (01) ==
LOC: C.SDS 12:44 → C.9S 16:08 → C.3T 20:08
PROVIDERS: ADMIT Urology; ATTEND Urology
DX: C67.9 Malignant neoplasm of bladder, unspecified (principal); R31.0 Gross hematuria; I12.9 Hypertensive chronic kidney disease with stage 1 through stage 4 chronic kidney disease, or unspecified chronic kidney disease; N18.9 Chronic kidney disease, unspecified; Q60.0 Renal agenesis, unilateral; J44.9 Chronic obstructive pulmonary disease, unspecified; G47.33 Obstructive sleep apnea (adult) (pediatric); F17.210 Nicotine dependence, cigarettes, uncomplicated; E78.5 Hyperlipidemia, unspecified; E78.00 Pure hypercholesterolemia, unspecified; E66.9 Obesity, unspecified; Z98.891 History of uterine scar from previous surgery; Z68.37 Body mass index [BMI] 37.0-37.9, adult
CPT/HCPCS: 36415; 52235; 80053; 82728; 83540; 83550; 83735; 84100; 85025; 86850; 86900; 88305; 93306; 96361; 96365; 96366; 97110; 97162; A4322; G0378; G8978; G8979; G8980; J0696; J1170; J2704; J7030